=== PATIENT | male | born 1975 | race Caucasian/White ===

== ENCOUNTER 2018-08-07 15:48 | Emergency (ER) | payer SELFPAY ==
[~2018-08-07] VITALS: Ht 165.1 cm; Wt 64.0 kg
--- NOTE | 2018-08-07 16:00 | NUR ---
PT AMBULATORY WITH STEADY GAIT TO BATHROOM.
--- NOTE | 2018-08-07 16:14 | NUR ---
43 Y/O MALE PRESENTS TO ED WITH C/O DETOX. "I WANT TO DETOX. MY LAST DRINK WAS A PINT OF VODKA ABOUT HALF HOUR AGO. I SMOKE LIKE A CHIMNEY AND MARIJUANA." NO C/O N/V/D, TRAUMA, CP, SOB, SYNCOPE. PT PLACED ON CON TPULSE OX,NIBP.
[2018-08-07 16:21] LABS: BASOPHILS # (AUTO) 0.02 x10^3/uL (0-0.1); BASOPHILS % (AUTO) 0 % (0-1); EOSINOPHILS # (AUTO) 0.12 x10^3/uL (0-0.4); EOSINOPHILS % (AUTO) 2 % (1-7); LYMPHOCYTES # (AUTO) 1.03 x10^3/uL (1-3.4); LYMPHOCYTES % (AUTO) 17 % (22-44); MD NO; MEAN CORPUSCULAR HEMOGLOBIN 36.8 pg (27.5-34.5); MEAN CORPUSCULAR HGB CONC 33.8 g/dL (33.2-36.2); MEAN CORPUSCULAR VOLUME 108.8 fL (81-97); MEAN PLATELET VOLUME 7.2 fL (7.4-10.4); MONOCYTES % (AUTO) 8 % (2-9); NEUTROPHILS # (AUTO) 4.31 x10^3/uL (1.8-6.8); NEUTROPHILS % (AUTO) 72 % (42-75); PLATELET COUNT 151 x10^3/uL (130-400); RED BLOOD COUNT 4.16 x10^6/uL (4.38-5.82); RED CELL DISTRIBUTION WIDTH 15.6 % (9.4-14.8)
[2018-08-07 16:35] LABS: ALANINE AMINOTRANSFERASE 45 U/L (12-78); ALBUMIN 4.2 g/dL (3.4-5.0); ANION GAP 10 mmol/L (5-15); CALCIUM 8.2 mg/dL (8.5-10.1); CHLORIDE 109 mmol/L (98-107)
--- NOTE | 2018-08-07 16:42 | NUR ---
PT RESTING ON GURNEY. NO ACUTE DISTRESS NOTED. NO NEEDS REQUESTED AT THIS TIME. PT GIVEN WARM BLANKETS
[2018-08-07 16:59] LABS: ALKALINE PHOSPHATASE 166 U/L (45-117); BILIRUBIN,TOTAL 0.3 mg/dL (0.2-1.0); TOTAL PROTEIN 8.5 g/dL (6.4-8.2)
--- NOTE | 2018-08-07 19:00 | NUR ---
REPORT OF PT FROM MILAGRO REYES AND ASSUMING CARE OF PT AT THIS TIME.
--- NOTE | 2018-08-07 19:16 | NUR ---
LATE ENTRY FOR 1845 PT RESTING ON GURNEY. NO ACUTE DISTRESS NOTED. NO NEEDS REQUESTED AT THIS TIME. PT GIVEN MULTIPLE RESOURCES FROM [facility]IAL [facility] FOR DETOX.
--- NOTE | 2018-08-07 19:16 | NUR ---
LATE ENTRY FOR 1730 PT RESTING ON GURNEY. NO ACUTE DISTRESS NOTED. WATER GIVEN. PT AMBULATORY WITH STEADY GAIT TO BATHROOM. NO NEEDS REQUESTED AT THIS TIME.
--- NOTE | 2018-08-07 19:22 | NUR ---
PT D/C W D/C SUMMARY AND SCRIPTS. PT STATES "I HAVE NO MONEY". PT EDUCATED AND PROVIDED WITH RESOURCES TO GET MEDICATIONS FILLED. PT VERBALIZES UNDERSTANDING. PT AMBULATES TO REGISTRATION DESK WITH STEADY GAIT. PT STATES HE'S WALKING TO [facility] AND DENIES ANY OTHER NEEDS PERTAINING TO THIS VISIT.
[2018-08-07 19:24] VITALS: BP 133/78
== END 2018-08-07 19:33 | disposition home or self-care (01) ==
LOC: ED 17:56
DX: F10.120 Alcohol abuse with intoxication, uncomplicated (principal); J45.909 Unspecified asthma, uncomplicated
CPT/HCPCS: 36415; 71045; 80053; 80307; 85025; 99284

== ENCOUNTER 2018-08-09 22:17 | Emergency (ER) | payer SELFPAY ==
[~2018-08-09] VITALS: Ht 167.6 cm; Wt 65.0 kg
[2018-08-09 23:19] LABS: ALBUMIN 3.9 g/dL (3.4-5.0); ANION GAP 9 mmol/L (5-15); CALCIUM 8.4 mg/dL (8.5-10.1); CHLORIDE 111 mmol/L (98-107); CREATININE 0.55 mg/dL (0.7-1.3)
--- NOTE | 2018-08-09 23:35 | NUR ---
PT INTOXICATED. PLACED ON CONT. SPO2 AND BP MONITOR. PT PLACED ON 2L DUE TO LOW O2. WILL CONTINUE TO MONITOR
[2018-08-10 00:08] VITALS: BP 148/91
--- NOTE | 2018-08-10 01:05 | NUR ---
ATTEMPTED TO AMBULATE PT. PT IS NOT SAFE TO AMBULATE ATT.
== END 2018-08-10 02:14 | disposition home or self-care (01) ==
LOC: ED 23:16
DX: F10.220 Alcohol dependence with intoxication, uncomplicated (principal); J45.909 Unspecified asthma, uncomplicated
CPT/HCPCS: 36415; 80048; 80307; 82040; 99283

== ENCOUNTER 2018-08-10 08:35 | Emergency (ER) | payer SELFPAY ==
[~2018-08-10] VITALS: Ht 165.1 cm; Wt 64.2 kg
[2018-08-10 08:44] VITALS: BP 121/81
--- NOTE | 2018-08-10 08:52 | NUR ---
"I'M TRYING TO DETOX AND GET OFF OF ALCOHOL" 1/2 GALLON OF ALCOHOL/DAY. LAST DRINK 08/09 2300. [facility] BY [facility]. PT HAS ROOM AT [facility]. [facility] NED KOEHLER PH: [phone] WILL ACCEPT PT FOR INTAKE ONCE DETOX IS COMPLETE. [facility] [phone] IF ANY QUESTIONS
--- NOTE | 2018-08-10 08:57 | NUR ---
PT AMBULATES TO ROOM FROM TRIAGE WITH STEADY GAIT AND BALANCE. NADN. NO DEFECITS OBSERVED.
--- NOTE | 2018-08-10 09:04 | NUR ---
PT RESTING ON [place]. ALL SAFETY MEASURES IN PLACE. PT STATES, "I NEED ALCOHOL DETOX AND THE [facility] WILL TAKE ME IN. 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 MY LAST DRINK WAS 11 LAST NIGHT. I SMOKE GANJA DAILY. I HAVE BLACKED OUT EVERY DAY FROM DRINKING. I HAVE HAD A SEIZURE FROM NOT DRINKING. SIX YEARS AGO I TRIED TO QUIT DRINKING ALCOHOL. I WAS AT A PROGRAM FOR 8 MONTHS BUT I DIDN'T STAY SOBER THEN. 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 I HAVE ITCHING. I WAS PRESCRIBED MEDICINE BUT I DON'T TAKE IT ANYMORE." ED MD AT BEDSIDE. ALL SAFETY MEASURES IN PLACE.
[2018-08-10] MEDS ORDERED: THIAMINE 100MG TABLET ONE (09:18)
[2018-08-10] MEDS ORDERED: THIAMINE 100MG TABLET PO ONE (09:30)
[2018-08-10 09:41] LABS: BASOPHILS # (AUTO) 0.04 x10^3/uL (0-0.1); BASOPHILS % (AUTO) 1 % (0-1); EOSINOPHILS # (AUTO) 0.19 x10^3/uL (0-0.4); EOSINOPHILS % (AUTO) 4 % (1-7); LYMPHOCYTES # (AUTO) 1.07 x10^3/uL (1-3.4); LYMPHOCYTES % (AUTO) 20 % (22-44); MD NO; MEAN CORPUSCULAR HEMOGLOBIN 35.8 pg (27.5-34.5); MEAN CORPUSCULAR VOLUME 108.7 fL (81-97); MEAN PLATELET VOLUME 6.9 fL (7.4-10.4); MONOCYTES # (AUTO) 0.48 x10^3/uL (0.2-0.8); MONOCYTES % (AUTO) 9 % (2-9); NEUTROPHILS # (AUTO) 3.68 x10^3/uL (1.8-6.8); NEUTROPHILS % (AUTO) 68 % (42-75); PLATELET COUNT 180 x10^3/uL (130-400); RED BLOOD COUNT 4.04 x10^6/uL (4.38-5.82); RED CELL DISTRIBUTION WIDTH 15.5 % (9.4-14.8)
[2018-08-10 09:51] LABS: ALBUMIN 3.9 g/dL (3.4-5.0); ANION GAP 10 mmol/L (5-15); CALCIUM 8.1 mg/dL (8.5-10.1); CHLORIDE 104 mmol/L (98-107)
[2018-08-10 09:56] LABS: ALANINE AMINOTRANSFERASE 43 U/L (12-78); ALKALINE PHOSPHATASE 142 U/L (45-117); BILIRUBIN,TOTAL 0.3 mg/dL (0.2-1.0); CREATININE 0.69 mg/dL (0.7-1.3); TOTAL PROTEIN 7.9 g/dL (6.4-8.2)
--- NOTE | 2018-08-10 11:12 | NUR ---
SPOKE TO PASTOR NED KOEHLER PH: [phone]. PER TATIANA, "WE WILL NOT ACCEPT HIM WHEN HE IS UNDER THE INFLUENCE. HE IS HEAVILY INTOXICATED AND WE WERE ANTICIPATING THAT HE WOULD REMAIN THERE FOR 1-2 DAYS. WE WILL TAKE HIM WHEN HE IS NOT UNDER THE INFLUENCE." ED MAKING MACHINE OPERATOR AWARE. ED MD AWARE.
--- NOTE | 2018-08-10 11:17 | NUR ---
[phone]. GABRIEL REQUESTING "[employer] ASSISTANCE FOR PT TO GET MEDICAID SO HE CAN GO SOMEWHERE FOR ALCOHOL DETOX".
--- NOTE | 2018-08-10 11:27 | NUR ---
Patient given discharge instructions and they have confirmed that they understand the instructions. Patient ambulatory with steady gait. PT LEFT WITH ALL PERSONAL BELONGINGS, DISCHARGE PAPERWORK, MEDICAID ASSITANCE INFORMATION, AND COMMUNITY RESOURCE INFORMATION.
--- NOTE | 2018-08-10 11:31 | NUR ---
PT DID NOT REMAIN ON MONITORS AND VITAL SIGNS WERE NOT CAPTURED. THROUGHOUT PT STAY PT WAS RECONNECTED, BUT THEN PT REMOVED NIBP CUFF, SPO2 MONITOR, AND TRIMMING ASSEMBLER.
== END 2018-08-10 11:33 | disposition home or self-care (01) ==
LOC: ED 09:38
DX: F10.220 Alcohol dependence with intoxication, uncomplicated (principal); Z71.41 Alcohol abuse counseling and surveillance of alcoholic
CPT/HCPCS: 36415; 80053; 80307; 85025; 99283

== ENCOUNTER 2019-03-20 20:43 | Emergency (ER) | payer MEDICAID ==
[~2019-03-20] VITALS: Ht 172.7 cm; Wt 70.0 kg
[2019-03-21 07:46] VITALS: BP 113/62
== END 2019-03-21 08:05 | disposition home or self-care (01) ==
LOC: MERGE 03-21 07:45 → UNMERGE 03-21 07:45 → ED 03-21 07:45
DX: F10.120 Alcohol abuse with intoxication, uncomplicated (principal); G31.2 Degeneration of nervous system due to alcohol; Z72.9 Problem related to lifestyle, unspecified
CPT/HCPCS: 36415; 80307; 99283